=== PATIENT | male | born 1965 | race Caucasian/White ===

== ENCOUNTER → 2017-07-07 | Outpatient (REF) | LOC: ZLAB.WCH 12:06 | DX: Z01.89 Encounter for other specified special examinations (principal) ==

== ENCOUNTER 2022-02-17 10:49 | Day surgery (SDC) | payer BC ==
[~2022-02-17] VITALS: Ht 177.8 cm; Wt 125.0 kg
[2022-02-17 11:40] VITALS: BP 141/95; PULSE 81; TEMP 98
[2022-02-17] MEDS ORDERED: ULTRAM 50MG TAB50 MG PO (12:20)
[2022-02-17] MEDS ORDERED: GLUCOPHAGE1000 MG PO (12:20)
[2022-02-17] MEDS ORDERED: PRINIVIL40 MG PO (12:21)
[2022-02-17] MEDS ORDERED: NORVASC 5MG5 MG/TAB PO (12:21)
[2022-02-17] MEDS ORDERED: ASPIRIN E.C. 8181 MG PO (12:22)
[2022-02-17] MEDS ORDERED: CLARITIN 1010 MG/TAB PO (12:22)
[2022-02-17 12:35] VITALS: BP 114/71; PULSE 71; TEMP 97.6
--- NOTE | 2022-02-17 12:35 | NUR ---
Patient arrives to [facility] for recovery via cart, accompanied by BUSINESS DEVELOPMENT COORDINATOR and SEAT JOINER CHAINSTITCH. Bedside report is received. He is alert, oriented. He denies pain or nausea. He had a digit block in the OR and has numbness to his fourth and fifth left fingers. He has a splint on the surgical finger that is "hanane taped" to the neighboring finger. The splint is clean/dry/intact. Monitoring is applied - VSS and WNL on room air. He is offered something to eat/drink and does not want anything. He is agreeable to try to drink some water.
[2022-02-17] MEDS ORDERED: ULTRAM ER100 MG PO (12:39)
[2022-02-17 12:50] VITALS: BP 120/73; PULSE 66
--- NOTE | 2022-02-17 12:50 | NUR ---
VSS and WNL on room air. Patient is resting comfortably, watching tv, and drinking water. His [facility]whie[facility]-tvi is called for a ride home and is able to pick him up between 1330 and 1345.
[2022-02-17 13:05] VITALS: BP 119/78; PULSE 70
--- NOTE | 2022-02-17 13:23 | NUR ---
Patient has met discharge criteria. Discharge instructions are discussed. He denies any questions and verbalizes understanding. PIV is removed with catheter intact and hemostasis achieved. He is changing to his clothing independently.
--- NOTE | 2022-02-17 14:09 | NUR ---
Patient is escorted to the exit via wheelchair by JAYSON Fonseca. He is discharged to the care of his family, who drives him home in a private vehicle at 1409.
== END 2022-02-17 14:09 | disposition home or self-care (01) ==
LOC: SDCO 10:49
DX: S63.287A Dislocation of proximal interphalangeal joint of left little finger, initial encounter (principal)
CPT/HCPCS: J0690; J2704; J7120